=== PATIENT | female | born 1995 | race Caucasian/White ===

== ENCOUNTER 2020-11-01 16:54 | Emergency (ER) | payer OTHER, BC, SELFPAY ==
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
[2020-11-01 17:03] VITALS: BP 135/94; PULSE 105; RESP 20; TEMP 36.9; O2SAT 100
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
== END 2020-11-01 18:44 | disposition home or self-care (01) ==
PROVIDERS: Emergency Provider General Practice
DX: S80.212A Abrasion, left knee, initial encounter (principal); M62.838 Other muscle spasm; V43.52XA Car driver injured in collision with other type car in traffic accident, initial encounter
CPT/HCPCS: 73562; 99283